=== PATIENT | male | born 1990 | race Hispanic/Latino ===

== ENCOUNTER 2017-05-21 01:32 | Emergency (ER) | payer MEDICAID ==
[2017-05-21 02:18] VITALS: BP 132/79; PULSE 91; RESP 18; TEMP 98.8; O2SAT 97
--- NOTE | 2017-05-21 02:59 | ED PDOC ---
Lower Extremity Pain/Injury Time Seen by Provider: 05/21/17 01:35 Chief Complaint (Nursing): Lower Extremity Problem/Injury Chief Complaint (Provider): Leg pain History Per: Patient Additional Complaint(s): Pt is a 26 yo male, no PMH, presents to ED with complaints of left foot pain x 2 weeks now, worse on ambulation. Pt report she jumped off a trailer, ~ 5 feet high. Pt ambulated into ED room with steady gait Past Medical History Reviewed: Nursing Documentation, Vital Signs Vital Signs: Last Vital Signs Temp 98.8 F 05/21/17 02:15 Pulse 91 H 05/21/17 02:15 Resp 18 05/21/17 02:15 BP 132/79 05/21/17 02:15 Pulse Ox 97 05/21/17 02:15 - Medical History PMH: No Chronic Diseases - Surgical History Surgical History: No Surg Hx - Family History Family History: States: No Known Family Hx - Living Arrangements Living Arrangements: With Family - Social History Current smoker - smoking cessation education provided: No Alcohol: None Drugs: Denies - Home Medications Home Medications: Ambulatory Orders Medication Instructions Recorded Ibuprofen [Motrin] 600 mg PO Q6 #20 tab 05/21/17 - Allergies Allergies/Adverse Reactions: Allergies Allergy/AdvReac Type Severity Reaction Status Date / Time FISH Allergy RASH Verified 05/21/17 02:15 Review of Systems ROS Statement: Except As Marked, All Systems Reviewed And Found Negative Musculoskeletal: Positive for: Foot Pain Physical Exam - Reviewed Nursing Documentation Reviewed: Yes Vital Signs Reviewed: Yes - Physical Exam Appears: Positive for: Well, Non-toxic, No Acute Distress Head Exam: Positive for: ATRAUMATIC, NORMAL INSPECTION, NORMOCEPHALIC Skin: Positive for: Normal Color, Warm, DRY Eye Exam: Positive for: EOMI, Normal appearance, PERRL ENT: Positive for: Normal ENT Inspection Neck: Positive for: Normal, Painless ROM Cardiovascular/Chest: Positive for: Regular Rate, Rhythm Respiratory: Positive for: CNT, Normal Breath Sounds Gastrointestinal/Abdominal: Positive for: Normal Exam, Bowel Sounds, Soft Back: Positive for: Normal Inspection Extremity: Positive for: Normal ROM, Tenderness. Negative for: Deformity, Swelling Neurologic/Psych: Positive for: Alert, Oriented - ECG O2 Sat by Pulse Oximetry: 97 Medical Decision Making Medical Decision Making: Motrin PO ordered XR of tib/fib, ankle, foot and heel: NAd, as read by WILMA Disposition - Clinical Impression Clinical Impression: Foot pain - Disposition Referrals: Kj Chan DO, DO [Primary Care Provider] - Disposition: Routine/Home Disposition Time: 04:24 Condition: STABLE Prescriptions: Ibuprofen [Motrin] 600 mg PO Q6 #20 tab Instructions: Arthralgia (ED) Forms: [employer] ([place])
--- NOTE | 2017-05-21 14:14 | RAD ---
PROCEDURE: Radiographs of the left calcaneus/hindfoot. HISTORY: fell pain COMPARISON: None available. TECHNIQUE: Frontal and lateral radiographs of the calcaneus. FINDINGS: No fracture or joint dislocation. No focal lesion. No calcaneal spur. IMPRESSION: Unremarkable radiographs of the left calcaneus /hindfoot.
--- NOTE | 2017-05-21 14:14 | RAD ---
PROCEDURE: Left Ankle Radiographs. HISTORY: fell pain COMPARISON: None FINDINGS: BONES: Normal. No fracture. JOINTS: Normal. No osteoarthritis. Ankle mortise maintained. Talar dome intact SOFT TISSUES: Normal. OTHER FINDINGS: None. IMPRESSION: Normal left ankle radiographs.
--- NOTE | 2017-05-21 14:15 | RAD ---
PROCEDURE: Left Foot Radiographs. HISTORY: fell, pain COMPARISON: None. FINDINGS: BONES: Normal. No fracture. JOINTS: Normal. SOFT TISSUES: Normal. OTHER FINDINGS: None. IMPRESSION: Normal left foot radiographs.
--- NOTE | 2017-05-21 14:15 | RAD ---
PROCEDURE: Radiographs of the left tibia and fibula. HISTORY: fall, pain COMPARISON: None available. TECHNIQUE: Frontal and lateral views obtained. FINDINGS: BONES: No fracture or destructive lesion. JOINT SPACES: Unremarkable. OTHER FINDINGS: None. IMPRESSION: Unremarkable radiographs of the left tibia and fibula.
== END 2017-05-21 04:25 | disposition home or self-care (01) ==
LOC: H.ER 01:32
DX: M79.672 Pain in left foot (principal); M25.572 Pain in left ankle and joints of left foot

== ENCOUNTER 2017-05-28 01:00 | Emergency (ER) | payer MEDICAID ==
[2017-05-28 01:31] VITALS: BP 142/74; PULSE 80; RESP 18; TEMP 97.8; O2SAT 99
[2017-05-28 01:57] LABS: RBC URINE 2 /hpf (0-3); URINE BACTERIA RARE (<OCC); URINE BILIRUBIN NEGATIVE (NEGATIVE); URINE BLOOD NEGATIVE (NEGATIVE); URINE COLOR YELLOW (YELLOW); URINE GLUCOSE (UA) NEG (Normal); URINE KETONE NEGATIVE (NEGATIVE); URINE LEUKOCYTE ESTERASE NEG Leu/uL (Negative); URINE PROTEIN NEGATIVE (NEGATIVE); URINE UROBILINOGEN 0.2-1.0 mg/dL (0.2-1.0); WBC URINE 1 /hpf (0-5)
--- NOTE | 2017-05-28 02:03 | ED PDOC ---
HPI: Psych/Substance Abuse Time Seen by Provider: 05/28/17 01:36 Chief Complaint (Nursing): Psychiatric Evaluation Chief Complaint (Provider): Psychiatric Evaluation History Per: Patient History/Exam Limitations: no limitations Current Symptoms Are (Timing): Still Present Additional Complaint(s): 26 y/o male with a history of schizophrenia, bipolar disease and major depression (non compliant with meds) presents to the ED as "He would like psychiatric evaluation". Patient states "feeling anti social." Admits using cocaine and opiates within last 24 hrs. Denies any homicidal ideation, suicidal indeation, chest pain, cough, fever, diarrhea and any further medical complaints. Past Medical History Reviewed: Historical Data, Nursing Documentation, Vital Signs Vital Signs: Last Vital Signs Temp 97.8 F 05/28/17 01:25 Pulse 80 05/28/17 01:25 Resp 18 05/28/17 01:25 BP 142/74 05/28/17 01:25 Pulse Ox 99 05/28/17 01:25 - Medical History PMH: Anxiety, Bipolar Disorder, Depression, Schizophrenia - Surgical History Surgical History: No Surg Hx - Family History Family History: States: Unknown Family Hx - Social History Current smoker - smoking cessation education provided: Yes (heavy smaoker >10 cigarettes daily) Alcohol: Social Drugs: Cocaine, Other (Opium) - Home Medications Home Medications: Ambulatory Orders Medication Instructions Recorded Ibuprofen [Motrin] 600 mg PO Q6 #20 tab 05/21/17 - Allergies Allergies/Adverse Reactions: Allergies Allergy/AdvReac Type Severity Reaction Status Date / Time FISH Allergy RASH Verified 05/21/17 02:15 Review of Systems ROS Statement: Except As Marked, All Systems Reviewed And Found Negative (As per HPI, otherwise negative) Constitutional: Negative for: Fever Cardiovascular: Negative for: Chest Pain Respiratory: Negative for: Cough Gastrointestinal: Negative for: Diarrhea Psych: Positive for: Depression. Negative for: Suicidal ideation, Other ( Homicidal Ideation) Physical Exam - Reviewed Nursing Documentation Reviewed: Yes Vital Signs Reviewed: Yes - Physical Exam Appears: Positive for: No Acute Distress Head Exam: Positive for: ATRAUMATIC, NORMAL INSPECTION, NORMOCEPHALIC Skin: Positive for: Normal Color, Warm, Dry Cardiovascular/Chest: Positive for: Regular Rate, Rhythm. Negative for: Murmur Respiratory: Positive for: Normal Breath Sounds. Negative for: Accessory Muscle Use, Respiratory Distress Gastrointestinal/Abdominal: Positive for: Normal Exam, Bowel Sounds, Soft Neurologic/Psych: Positive for: Alert, Oriented (x3), Mood/Affect (flat), Other (poorly groomed) - ECG O2 Sat by Pulse Oximetry: 99 (RA) Pulse Ox Interpretation: Normal Medical Decision Making Medical Decision Making: Time: 01:37 Initial Impression: request for psychiatric services Initial Plan: --Drug Screen Urine --Crisis Evaluation --Urinalysis --Reevalaution Time: 03:36 Patient was evaluated by crisis and is medically stable to go home. Clinical Impression: substance abuse and depression Scribe Attestation: Documented by Lias Greene, acting as a scribe for Akil Charlton MD. Provider Scribe Attestation: All medical record entries made by the Scribe were at my direction and personally dictated by me. I have reviewed the chart and agree that the record accurately reflects my personal performance of the history, physical exam, medical decision making, and the department course for this patient. I have also personally directed, reviewed, and agree with the discharge instructions and disposition. Disposition - Clinical Impression Clinical Impression: Polysubstance abuse, Depression - Disposition Disposition: Routine/Home Disposition Time: 03:36 Condition: STABLE Instructions: Depression (ED), Polysubstance Abuse (ED) Forms: [employer] (Danish)
== END 2017-05-28 04:20 | disposition home or self-care (01) ==
LOC: H.ER 01:00
DX: F19.10 Other psychoactive substance abuse, uncomplicated (principal); F32.9 Major depressive disorder, single episode, unspecified